=== PATIENT | male | born 1980 | race Caucasian/White ===

== ENCOUNTER 2018-09-08 15:44 | Emergency (ER) | payer MEDICAID, OTHER ==
[~2018-09-08] VITALS: Ht 180.3 cm; Wt 90.7 kg
[2018-09-08 15:57] VITALS: BP 137/85
[2018-09-08] MEDS ORDERED: azithromycin 250mg tablet PO ONE (16:25)
[2018-09-08] MEDS ORDERED: CefTRIAXone 250MG IM Kit w/LIDOcaine IM ONE (16:25)
[2018-09-08 17:01] LABS: CLARITY,URINE CLOUDY (Clear); COLOR,URINE YELLOW (Yellow); GLUCOSE, URINE NEGATIVE (Neg); PROTEIN,URINE 30 mg/dl (Neg); UA COLLECTION TYPE CLN CATCH MIDSTREAM
[2018-09-08 17:02] LABS: KETONES,URINE NEGATIVE (Neg); LEUKOCYTE ESTERASE ,URINE Large (Neg); NITRITES, URINE NEGATIVE (Neg); OCCULT BLOOD,URINE MODERATE (Neg); UROBILINOGEN,URINE 0.2 E.U/dL (0.2-1.0)
[2018-09-08 17:06] LABS: BACTERIA,URINE FEW /HPF (Neg); SQUAMOUS EPITHELIAL CELL,UR FEW /LPF (FEW); WBC,URINE TNTC /HPF (0-4)
== END 2018-09-08 16:52 | disposition home or self-care (01) ==
LOC: ER 15:44
DX: A64 Unspecified sexually transmitted disease (principal)
CPT/HCPCS: 36415; 81001; 87088; 87491; 87591; 96372; 99283; J0696

== ENCOUNTER 2021-10-07 13:31 | Emergency (ER) | payer MEDICAID, OTHER ==
[~2021-10-07] VITALS: Ht 180.3 cm; Wt 86.0 kg
[2021-10-07 13:53] VITALS: BP 118/63
[2021-10-07] MEDS ORDERED: CefTRIAXone 500MG IM Kit w/LIDOcaine IM ONE (14:00)
[2021-10-07] MEDS ORDERED: azithromycin 250mg tablet PO ONE (14:00)
[2021-10-07] MEDS ORDERED: CefTRIAXone 1000mg IM Kit (w/lidocaine diluent) IM ONE (14:10)
[2021-10-07 14:31] LABS: CLARITY,URINE CLOUDY (Clear); COLOR,URINE YELLOW (Yellow); GLUCOSE, URINE NEGATIVE (Neg); KETONES,URINE NEGATIVE (Neg); LEUKOCYTE ESTERASE ,URINE SMALL (Neg); NITRITES, URINE NEGATIVE (Neg); OCCULT BLOOD,URINE NEGATIVE (Neg); PROTEIN,URINE NEGATIVE (Neg); UROBILINOGEN,URINE 0.2 E.U/dL (0.2-1.0)
[2021-10-07 14:34] LABS: UA COLLECTION TYPE CLN CATCH MIDSTREAM
[2021-10-07 14:36] LABS: SQUAMOUS EPITHELIAL CELL,UR FEW /LPF (FEW)
[2021-10-07 14:38] LABS: WBC,URINE 50-100 /HPF (0-4)
[2021-10-07 14:39] LABS: BACTERIA,URINE FEW /HPF (Neg); RBC,URINE 0-2 /HPF (0-2)
== END 2021-10-07 15:51 | disposition home or self-care (01) ==
LOC: ER 13:32
DX: A64 Unspecified sexually transmitted disease (principal); R50.9 Fever, unspecified; R30.0 Dysuria
CPT/HCPCS: 36415; 81001; 87077; 87088; 87185; 87491; 87591; 96372; 99284; J0696